=== PATIENT | female | born 1990 | race African-American/Black ===

== ENCOUNTER 2023-04-26 10:07 | Outpatient (AMB) | payer OTHER, SELFPAY ==
[2023-04-26 10:18] VITALS: BP 114/68; PULSE 72; O2SAT 99; BMI 25.5
--- NOTE | 2023-04-26 10:18 | MHC.PC.OV ---
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 occ dizziness PFSH Family History (Updated 04/26/23 @ 10:22 by Nicolle Yost [facility]) Mother Lupus Father No problems noted. Brother No problems noted. Brother No problems noted. Sister No problems noted. Daughter No problems noted. Son No problems noted. Son No problems noted. Social History (Updated 04/26/23 @ 10:35 by Torin Wyatt MD) Housing: Apartment Alcohol intake: current Patient Tobacco Use Status: Never used Tobacco Years Smoked: marijuana e-Cigarette/Vaping Use: Never Used Second Hand Smoke Exposure: No service: No Current occupational status: employed Cognitive needs: No Hearing needs: No Vision needs: Yes Questionnaire PHQ-9 Over the last 2 weeks, how often have you been bothered by any of the following problems? 1. Little interest or pleasure in doing things: not at all 2. Feeling down, depressed, or hopeless: not at all 3. Trouble falling or staying asleep, or sleeping too much: not at all 4. Feeling tired or having little energy: not at all 5. Poor appetite or overeating: not at all 6. Feeling bad about yourself - or that you are a failure or have let yourself or your family down: not at all 7. Trouble concentrating on things, such as reading the newspaper or watching television: not at all 8. Moving or speaking so slowly that other people could have noticed. Or the opposite - being so fidgety or restless that you have been moving around a lot more than usual: not at all 9. Thoughts that you would be better off or of hurting yourself in some way: not at all Total score: 0 Depression Screening Interpretation: Negative Depression Screening Done: Yes Source: Developed by Drs. Jadiel Pearson, Jennifer Moya, Mark Lizama and colleagues, with an educational linn from [employer]. Thrive Questionnaire Date Thrive assessed: 04/26/23 I am a: Patient What is your living situation today?: I have a steady place to live Within the past 12 months, did the food you bought not last and you didn't have the money to get more?: Never true Within the past 12 months, did you worry whether your food would run out before you got money to buy more?: Never true Do you have trouble paying for medicines?: No Do you have trouble getting transportation to medical appointments?: No Do you have trouble paying your heating and electricity bill?: No Do you have trouble taking care of your child, family member or friend?: No Do you have trouble with day-to-day activities such as bathing, preparing meals, shopping, managing finances, etc.?: No Are you currently unemployed and looking for a job?: No Are you interested in more education?: No Currently or been in a relationship where the following occur: no concerns reported AUDIT C Alcohol Use Questionnaire (AUDIT-C) 1. How often do you have a drink containing alcohol?: Monthly or less 2. How many drinks containing alcohol do you have on a typical day when you are drinking?: 1 or 2 3. How often do you have six or more drinks on one occasion?: Never Total Score: 1 SERGIO-7 AMB Questionnaire SERGIO-7 Date SERGIO - 7 assessed: 04/26/23 Feeling nervous, anxious, or on edge: 0 = Not at all Not being able to stop or control worryin = Not at all Worrying too much about different things: 0 = Not at all Trouble relaxin = Not at all Being so restless that it is hard to sit still: 0 = Not at all Becoming easily annoyed or irritable: 0 = Not at all Feeling afraid as if something awful might happen: 0 = Not at all Total SERGIO-7 score (0-4 normal; 5-9 mild; 10-14 moderate; 15-21 severe): 0 Source: Developed by Drs. Jadiel Pearson, Jennifer Moya, Mark Lizama and colleagues, with an educational linn from [employer]. Review of Systems Const Denies poor appetite and Denies weakness Eyes Denies no additional complaints ENT Reports Normal hearing present, Denies dizziness, Denies nasal congestion, Denies tinnitus and Denies sore throat Card Denies chest pain, Denies syncope, Denies rapid heart rate and Denies dyspnea Resp Denies cough and Denies dyspnea GI Denies change in stool character, Reports constipation, Denies diarrhea, Denies nausea and Denies vomiting Denies urinary frequency, Denies difficulty voiding and Denies dysuria Neuro Reports Normal hearing present, Denies confusion, Denies dizziness, Denies syncope and Denies weakness Psych Denies confusion Physical exam (Primary Care) Vital Signs: Oxygen Delivery Method Room Air 04/26/23 10:18 Depression Screening Interpretation: Negative Currently or been in a relationship where the following occur: no concerns reported Const General: No confusion Orientation/consciousness: No confusion HENMT Head: Yes normocephalic Ears: external ears normal and TM's normal bilaterally Face and sinus: Yes normal facial exam Mouth: moist mucous membranes Throat: Yes tonsils normal Eyes Conjunctivae: conjunctivae normal Pupils: Equal, round and reactive pupils present and Pupil accommodation reflex normal Direct Ophthalmoscopy: normal light reflex Neck Neck: No lymphadenopathy Thyroid: Thyroid normal Chest Chest palpation & inspection: normal inspection of the chest Resp Effort & Inspection: normal respiratory effort and no audible wheezes Auscultation: clear to auscultation bilaterally, no crackles, no wheezes and lung sounds not diminished Cardio Rate: regular rate Rhythm: regular rhythm Peripheral pulses: radial pulses present and dorsalis pedis present GI Palpation (GI): no masses Auscultation: normal bowel sounds and normoactive bowel sounds Rectal Exam - Female: deferred Skin General skin exam: no rashes or lesions noted Rashes: no rashes Neuro General: No confusion Cranial nerves: Yes Equal, round and reactive pupils present and Yes Normal hearing present Cognition (Neuro): normal cognition Gait exam (Neuro): Normal gait present Motor exam (neuro): 5/5 motor strength present throughout Deep tendon reflexes (DTR's): Right brachioradialis reflex intensity grade: 2+, Left brachioradialis reflex intensity grade: 2+, Right patellar reflex intensity grade: 2+ and Left patellar reflex intensity grade: 2+ Extrem General: No edema Office Procedures Flu Questionnaire Does the patient have a severe egg allergy?: No Does the patient have severe life threatening allergies?: No Does the patient have a fever or illness today?: No Has the patient ever had Guillain-Harrison Syndrome?: No Has the patient ever had any past reaction to a flu shot?: No Immunizations flu vacc [id number] 6mos up(PF) 60 mcg(15 mcgx4)/0.5 mL IM syringe Performing Provider: Torin Wyatt MD [facility] Documented (not given) by: Nicolle Yost CMA on 04/26/23 10:24 Reason Not Given: Patient Refused Assessment and Plan Assessment & Plan (1) Annual physical exam: Code(s): Z00.00 - Encounter for general adult medical examination without abnormal findings (2) Cervical cancer screening: Code(s): Z12.4 - Encounter for screening for malignant neoplasm of cervix Orders: Orders Thyroid Stimulating Hormone Today Z00.00 - Encounter for general adult medical examination without abnormal findings Vitamin B12 and Folate Today Z00.00 - Encounter for general adult medical examination without abnormal findings Lipid Panel Today E78.00 - Pure hypercholesterolemia, unspecified, Z00.00 - Encounter for general adult medical examination without abnormal findings Influenza [id number] Immunization Today Z23 - Encounter for immunization Complete Blood Count Auto Diff Today Z00.00 - Encounter for general adult medical examination without abnormal findings Comprehensive Met. Panel Today Z00.00 - Encounter for general adult medical examination without abnormal findings Free T4 (Free Thyroxine) Today Z00.00 - Encounter for general adult medical examination without abnormal findings Referrals CHIEF KNOWLEDGE OFFICER Referral Z12.4 - Encounter for screening for malignant neoplasm of cervix Coding Level of Care Code New Pt Prev Care 18-39yr([id number] Diagnoses Annual physical exam Z00.00 Cervical cancer screening Z12.4
== END 2023-04-26 11:16 | disposition home or self-care (01) ==
PROVIDERS: PCP Internal Medicine; Visit Provider Internal Medicine
DX: Z00.00 Encounter for general adult medical examination without abnormal findings (principal)
CPT/HCPCS: 99385

== ENCOUNTER 2023-09-09 14:12 | Outpatient (AMB) | payer OTHER, SELFPAY ==
[2023-09-09 14:18] VITALS: BP 130/82; BMI 24.7
--- NOTE | 2023-09-09 14:18 | A.OFFVIS_ITS ---
Intake Vital Signs 09/09/23 14:18 Height 5 ft 1 in Weight 131 lb BMI 24.7 BP 130/82 Intake Visit Reasons: New patient Annual Intake Note: control Cafeteria Director Required: No Information Interpreted: non-clinical & clinical Geospatial Scientist: Geospatial Scientist Present (Shannanyn) Allergies penicillin G Allergy (Severe, Verified 09/09/23 14:19) Hives Medication List - Last Reconciled 09/09/23 by Nory Milligan CNM cetirizine 10 mg PO DAILY fluticasone propionate 50 mcg/actuation sprays intranasal Is last menstrual period known: Yes Last menstrual period: 08/27/23 Post menopausal: No HPI New patient Annual HPI Details Patient is here for her 1st leadite man annual exam here she is live in [place] and that is where she had her kids she delivered all of them vaginally. She thinks it is about 6 or 7 years since she had a Pap smear. She has used pills before and the shot she would like a different method of control other than the condom she is using currently we reviewed all of the methods during this visit. She sometimes gets migraines but does not report them as having an aura. One time she had high blood pressure when she went to urgent Care last fall with an infection on her face which has left a scar to the left of her nose other than that she never had high blood pressure. [facility] Family History (Updated 04/26/23 @ 10:22 by Nicolle Yost [facility]) Mother Lupus Father No problems noted. Brother No problems noted. Brother No problems noted. Sister No problems noted. Daughter No problems noted. Son No problems noted. Son No problems noted. Social History (Updated 04/26/23 @ 10:35 by Torin Wyatt MD) Housing: Apartment Alcohol intake: current Patient Tobacco Use Status: Never used Tobacco Years Smoked: marijuana e-Cigarette/Vaping Use: Never Used Second Hand Smoke Exposure: No service: No Current occupational status: employed Cognitive needs: No Hearing needs: No Vision needs: Yes Female Reproductive History Menstrual Age of Menarche: 13 Duration of menses: 3-5 days Date of last menstrual period: 08/27/23 control method: none Total pregnancies: 5 Full term: 3 Number of Living Children: 3 Ab spontaneous: 2 Physical Exam Vital Signs: Last Vital Signs BP 130/82 09/09/23 14:18 BMI result Body Mass Index 24.7 Const General: healthy appearing, comfortable, no acute distress, well developed and alert Nutritional Appearance: average body habitus Orientation/consciousness: patient oriented x3 Limitations: no limitations HEENT Head: Yes normocephalic Neck Neck: Yes normal visual inspection Chest Chest palpation & inspection: normal inspection of the chest Breast/axilla inspection: normal inspection of the breasts and normal inspection of the axillae Breast/axilla palpation: normal palpation of the breasts and normal palpation of the axillae Resp Effort & Inspection: normal respiratory effort GI Inspection: Yes normal to inspection, No Abdominal wall edema and No distended Palpation (GI): Soft to palpation and nontender Other: External exam within normal limits vagina pink and moist multiparous cervix bled very easily at initial touch of speculum. Cervix was very firm mobile nontender. Uterus small firm midposition nontender adnexa nontender fair tone with Kegel but difficulty coordinating will give extra information for her to practice. General: Yes bladder normal to palpation External Female Exam: normal external appearance and normal appearance of the urethra Speculum Exam - Vagina: normal appearance of the vagina, normal palpation and normal vaginal discharge Speculum Exam - Cervix: normal appearance of the cervix, normal palpation and nontender Bimanual exam- vagina & uterus: normal bimanual exam, normal palpation, uterine size normal, bladder normal to palpation, consistency normal, normal palpation, uterine mobility normal, uterine shape normal, No Cervical tenderness present, non-tender and no cervical motion tenderness Bimanual Exam- Adnexa, other: normal adnexae, no masses, normal and No adnexal tenderness Neuro General: patient oriented x3 Assessment & Plan Assessment & Plan (1) Cervical cancer screening: Code(s): Z12.4 - Encounter for screening for malignant neoplasm of cervix (2) Friable cervix: Code(s): N88.8 - Other specified noninflammatory disorders of cervix uteri (3) Counseling for initiation of control method: Code(s): Z30.09 - Encounter for other general counseling and advice on contraception (4) Well woman exam with routine gynecological exam: Code(s): Z01.419 - Encounter for gynecological examination (general) (routine) without abnormal findings (5) Encounter for screening examination for sexually transmitted disease: Code(s): Z11.3 - Encounter for screening for infections with a predominantly sexual mode of transmission Plan -----Discussed in this visit the following: healthy balanced diet, regular and consistent exercise, getting recommended health screens, doing the best she can for her particular health concerns, kegel exercises, pap smear screening and followup recommendations, mammography screening and SBE, normal changes in cycles in her life stage--- .---I reviewed with the patient, all of the currently common used methods of control that are available. We reviewed how they work in the body, how t hey are taken, common side effects, uncommon side effects, precautions, and contraindications. -Discussed also factors that influence their effectiveness and use, and womens satisfaction with the method. -Discussed how each are used, and drawbacks of each method as well. -Methods covered included: condoms, control pills, control patches, control rings, Depo-Provera, Nexplanon, Mirena and Kyleena IUDs, and ParaGard IUDs. All of the above methods were covered in great detail including their side effect profiles and common experiences that women have and ways to mitigate ag ainst the negative experiences including attention to diet and exercise patient's with bleeding challenges that may occur her and efforts to time the initiation of the method to this start of the menstrual period. She decided to try the patch. We will see her in 3 months to make sure she does not develop any hypertension or have any worsening of any of her headaches. I will give her a prescription for year but we will definitely see her in 3 months for a patch check. I reviewed with her how to use it how to keep track of the timing and she thinks she will be good at that part because she has to change her contact lenses every 2 weeks and she has a reminder on her phone so she will just add this into her routine for weekly patch she is to start the patch on her next. I also reviewed signs and symptoms of ovulation which she realized in the discussion she has been having but did not know what it was( cervical mucous changes w ovulation) -----I Had the patient and demonstrate a Kegel contraction at the end of the exam, ordered in order to explain a Kegel exercise, and instructed the patient on doing the same exercises several times a day with increasing strength each time. One useful to is to imagine pursestring around the vagina and pulling it tight and upwards as if raising the vagina, or imagining that her tight muscles are on the 1st floor and she is trying to pull them up to the 5th floor and then slowly letting them go down. To try to do these several times a day but focus on the quality and the strength of the exercises more than the quantity, and tried isolate just those muscles and not involve other body parts STD. testing was done the exam but she declined blood work for HIV hep B hep C and syphilis with Medications: New norelgestromin-ethin.estradiol 150-35 mcg/24 hr (Xulane) apply once weekly for 3 weeks of a 4-week cycle 1 patch transdermal Q7D 9 ea 3RF Coding Level of Care Code New Pt Prev Care 18-39yr([id number] Diagnoses Cervical cancer screening Z12.4 Friable cervix N88.8 Counseling for initiation of control method Z30.09 Well woman exam with routine gynecological exam Z01.419 Encounter for screening examination for sexually transmitted disease Z11.3
== END 2023-09-09 15:50 | disposition home or self-care (01) ==
LOC: HO.HWSM 14:12
PROVIDERS: PCP Internal Medicine; Visit Provider Advanced Practice Midwife
DX: Z01.419 Encounter for gynecological examination (general) (routine) without abnormal findings (principal); N88.8 Other specified noninflammatory disorders of cervix uteri; Z30.09 Encounter for other general counseling and advice on contraception
CPT/HCPCS: 99385

== ENCOUNTER 2023-09-09 14:12 | Outpatient (REF) | payer OTHER, SELFPAY ==
[2023-09-10 09:53] LABS: CT PCR NOT DETECTED (Not Detect.); NG PCR NOT DETECTED (Not Detect.)
[2023-09-10 11:38] LABS: BV Int Neg Control Negative (Negative); BV Int Pos Control Positive (Positive)
[2023-09-17 03:59] LABS: HPV mRNA E6/E7 rflx Not Detected (Not Detected)
== END 2023-09-09 14:13 | disposition home or self-care (01) ==
LOC: HO.LNP 14:12
PROVIDERS: PCP Internal Medicine; Visit Provider Advanced Practice Midwife
DX: Z01.419 Encounter for gynecological examination (general) (routine) without abnormal findings (principal); Z11.51 Encounter for screening for human papillomavirus (HPV); N88.8 Other specified noninflammatory disorders of cervix uteri; Z20.2 Contact with and (suspected) exposure to infections with a predominantly sexual mode of transmission
CPT/HCPCS: 0353U; 87480; 87510; 87624; 87660; 88142

== ENCOUNTER 2024-05-30 14:55 | Outpatient (AMB) | payer OTHER, SELFPAY ==
[2024-05-30 14:57] VITALS: BP 148/90; PULSE 83; O2SAT 98; BMI 22.7
--- NOTE | 2024-05-30 14:57 | A.OFFPC_ITS ---
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 In review of the notes, patient was seen by [facility] gynecology August 2023 for annual exam with Pap smear. Patient is 9 weeks and has been following [facility]. She is being monitored for gestational hypertension and has a history of this. She uses baby scripts to monitor her blood pressure and OB is aware that her blood pressures have been higher and are deferring medication at this time. She is up-to-date on all vaccinations and sees an eye doctor yearly. [facility] Family History Mother Lupus Father No problems noted. Brother No problems noted. Brother No problems noted. Sister No problems noted. Daughter No problems noted. Son No problems noted. Son No problems noted. Social History Housing: Apartment Alcohol intake: current Patient Tobacco Use Status: Never used Tobacco Years Smoked: marijuana e-Cigarette/Vaping Use: Never Used Second Hand Smoke Exposure: No service: No Current occupational status: employed Cognitive needs: No Hearing needs: No Vision needs: Yes Female Reproductive History Menstrual Age of Menarche: 13 Questionnaire PHQ-9 Over the last 2 weeks, how often have you been bothered by any of the following problems? 1. Little interest or pleasure in doing things: not at all 2. Feeling down, depressed, or hopeless: not at all 3. Trouble falling or staying asleep, or sleeping too much: not at all 4. Feeling tired or having little energy: not at all 5. Poor appetite or overeating: not at all 6. Feeling bad about yourself - or that you are a failure or have let yourself or your family down: not at all 7. Trouble concentrating on things, such as reading the newspaper or watching television: not at all 8. Moving or speaking so slowly that other people could have noticed. Or the opposite - being so fidgety or restless that you have been moving around a lot more than usual: not at all 9. Thoughts that you would be better off or of hurting yourself in some way: not at all Total score: 0 Depression Screening Interpretation: Negative Depression Screening Done: Yes 56018 - PHQ-9 Billing: Yes Source: Developed by Drs. Jadiel Pearson, Jennifer Moya, Mark Lizama and colleagues, with an educational linn from [employer]. Thrive Questionnaire Date Thrive assessed: 05/30/24 I am a: Patient What is your living situation today?: I have a steady place to live Within the past 12 months, did the food you bought not last and you didn't have the money to get more?: Never true Within the past 12 months, did you worry whether your food would run out before you got money to buy more?: Never true Do you have trouble paying for medicines?: No Do you have trouble getting transportation to medical appointments?: No Do you have trouble paying your heating and electricity bill?: No Do you have trouble taking care of your child, family member or friend?: No Do you have trouble with day-to-day activities such as bathing, preparing meals, shopping, managing finances, etc.?: No Are you currently unemployed and looking for a job?: No Are you interested in more education?: I choose not to answer this question Please select the resources that you would like help with: None Currently or been in a relationship where the following occur: No concerns reported THRIVE Score: 0 AUDIT C Alcohol Use Questionnaire (AUDIT-C) 1. How often do you have a drink containing alcohol?: Never 3. How often do you have six or more drinks on one occasion?: Never Total Score: 0 SERGIO-7 AMB Questionnaire SERGIO-7 Date SERGIO - 7 assessed: 05/30/24 Feeling nervous, anxious, or on edge: 0 = Not at all Not being able to stop or control worryin = Not at all Worrying too much about different things: 0 = Not at all Trouble relaxin = Not at all Being so restless that it is hard to sit still: 0 = Not at all Becoming easily annoyed or irritable: 0 = Not at all Feeling afraid as if something awful might happen: 0 = Not at all Total SERGIO-7 score (0-4 normal; 5-9 mild; 10-14 moderate; 15-21 severe): 0 Source: Developed by Drs. Jadiel Pearson, Jennifer Moya, Mark Lizama and colleagues, with an educational linn from [employer]. SERGIO-7 Assessment Billing SERGIO-7 Assessment Tool: SERGIO-7 Assessment 74696 Review of Systems Const Denies body aches, Denies fatigue, Denies fever(s), Denies frequent falls, Denies headache(s) and Denies weakness Eyes Reports no additional complaints, Denies change in vision and Reports requires corrective lenses ENT Denies dysphagia, Denies dizziness, Denies facial pain, Denies headache(s), Denies nasal congestion and Denies odynophagia Card Denies chest pain, Denies syncope, Denies irregular heart rhythm, Denies leg edema, Denies lightheadedness and Denies dyspnea Resp Denies cough and Denies dyspnea GI Denies constipation, Denies dysphagia, Denies dyspepsia, Denies diarrhea, Reports nausea (AM), Denies odynophagia and Reports vomiting (AM) Denies urinary frequency, Denies dysuria, Denies urinary hesitancy and Denies urinary urgency Musc Denies back pain and Denies myalgias Skin/Breast Reports system reviewed and no additional complaints, except as documented Neuro Denies dizziness, Denies syncope, Denies frequent falls, Denies headache(s) and Denies weakness Psych Reports no additional complaints Endo Denies fatigue Physical exam (Primary Care) Vital Signs: Last Vital Signs Pulse 83 05/30/24 14:57 BP 148/90 H 05/30/24 14:57 Pulse Ox 98 05/30/24 14:57 Oxygen Delivery Method Room Air 05/30/24 14:57 BMI result Body Mass Index 22.7 Tobacco/Smoking Status: Tobacco use Status Tobacco use date assessed 05/30/24 05/30/24 15:04 Patient Tobacco Use Status Never used Tobacco 05/30/24 15:04 e-Cigarette/Vaping Use Never Used 05/30/24 15:04 PHQ-9: PHQ-9 Score PHQ-9: Total score 0 05/30/24 15:37 Depression Screening Interpretation: Negative Thrive Assessment: Date of Thrive Assessment Date Thrive assessed 05/30/24 05/30/24 15:04 Currently or been in a relationship where the following occur: No concerns reported Const General: cooperative, healthy appearing, comfortable and no acute distress Orientation/consciousness: patient oriented x3 HENMT Head: Yes normocephalic Ears: hearing grossly normal bilaterally, external ears normal, TM's normal bilaterally and EAC's normal General nose exam: Normal external nose present Face and sinus: Yes normal facial exam and Yes sinuses nontender Mouth: Normal oral and palatal mucosa present and tongue normal Throat: Yes posterior oropharynx normal Eyes General: appearance normal, both eyes and all related structures Conjunctivae: conjunctivae normal Pupils: Equal, round and reactive pupils present EOM: EOMs intact bilaterally and No Nystagmus present Neck Neck: Yes normal visual inspection, Yes full ROM and Yes no lymphadenopathy Chest Chest palpation & inspection: normal inspection of the chest Resp Effort & Inspection: normal respiratory effort Auscultation: clear to auscultation bilaterally, no crackles, no rales, no r honchi, no wheezes and breath sounds present Cardio Rate: regular rate Rhythm: regular rhythm Peripheral pulses: radial pulses present and dorsalis pedis present GI Inspection: Yes normal to inspection and No Abdominal wall edema Palpation (GI): Soft to palpation, not firm and nontender Auscultation: normal bowel sounds Rectal Exam - Female: deferred General: Yes no CVA tenderness Back/Spine/Pelvis Back: no CVA tenderness Skin General skin exam: no rashes or lesions noted Neuro General: patient oriented x3 Cranial nerves: Yes Equal, round and reactive pupils present, Yes Midline tongue present, Yes Ability to bilaterally elevate shoulders present and No Nystagmus present Gait exam (Neuro): Normal gait present Extrem General: Yes normal to inspection, Yes full ROM, No no pedal edema and No edema Psych Speech and movement: Normal speech and movement present Affect: normal affect Insight: Good insight present (Psych) Judgement: Good judgement present (Psych) Coding Level of Care Code New Pt Prev Care 18-39yr(91669 Diagnoses Annual physical exam Z00.00 Additional Codes SERGIO-7 Assessment Billing - SERGIO-7 Assessment Tool: SERGIO-7 Assessment 87096 ([id number]) PHQ-9 - 33992 - PHQ-9 Billing: Yes ([id number]) Assessment & Plan Assessment & Plan (1) Annual physical exam: Code(s): Z00.00 - Encounter for general adult medical examination without abnormal findin gs Category: Medical Plan: Patient is up-to-date on all recommended routine screenings and vaccinations for her age. She recently had blood work through [facility] and we will not request blood work at this time. We will follow up annually or sooner if new problems arise or if instructed by OB. Management of the blood pressure we will defer to her OB provider at this time.
== END 2024-05-30 15:52 | disposition home or self-care (01) ==
LOC: HO.HMCH 14:55
PROVIDERS: PCP Internal Medicine
DX: Z00.00 Encounter for general adult medical examination without abnormal findings (principal)

== ENCOUNTER → 2024-05-30 14:55 | Outpatient (BNVA) | payer OTHER, SELFPAY | PROVIDERS: PCP Internal Medicine | DX: Z00.00 Encounter for general adult medical examination without abnormal findings (principal) | CPT/HCPCS: 96127 ==

== ENCOUNTER 2025-03-27 10:04 | Emergency (ER) | payer OTHER, SELFPAY ==
[2025-03-27 10:06] VITALS: BP 154/82; PULSE 78; RESP 18; TEMP 36.6; O2SAT 98; BMI 25.5
--- NOTE | 2025-03-27 10:27 | ED.GENADULT ---
HPI - General Adult General Chief complaint: General Medical Stated complaint: itchy hair Time Seen by Provider: 03/27/25 10:25 Source: patient and old records reviewed Mode of arrival: ambulatory Limitations: no limitations History of Present Illness ED Provider: DENIZ JENKINS narrative: 34 yo female with no sig PMH here with itchy scalp for a few days. She notes her kids had lice and she has had to treat them twice. She herself has not been treated. She has no other rash or itching anywhere. MD complaint: itchy scalp Onset (ago): day(s) (few) Location: head Radiation: non-radiation Severity: mild Quality: other (pruritic) Relieving factors: none Exacerbating factors: none Associated symptoms: denies other symptoms Treatments prior to arrival: none Related Data Home Medications ?Medication ?Instructions ?Recorded ?Confirmed ondansetron 4 mg disintegrating mg PO 05/30/24 05/30/24 tablet pyridoxine (vitamin B6) 25 mg 25 mg PO TID PRN nausea/vomiting 05/30/24 05/30/24 tablet (Vitamin B-6) Previous Rx's ?Medication ?Instructions ?Recorded permethrin 1 % topical liquid (Nix 60 ml topical ONCE #118 mL 03/27/25 Creme Rinse) Allergies Allergy/AdvReac Type Severity Reaction Status Date / Time penicillin G Allergy Severe Hives Verified 03/27/25 10:07 Review of Systems Review of Systems: Constitutional : No Fever, No Chills Cardiovascular : No Chest Pain, No SOB, No Dyspnea on Exertion Respiratory : No Cough, No Sputum Gastrointestinal : No Nausea, No Vomiting Musculoskeletal : No joint pain, No Myalgias, No Joint Swelling Skin : No Skin Lesions, No rash Neuro : No Weakness, No Numbness, No Dizziness, no headache All other systems reviewed and are negative PMF Past Medical History Attestation statement: The following information was validated with the patient. Source: old records reviewed Medical History Cervical cancer screening Friable cervix Family History Family History Mother Lupus Father No problems noted. Brother No problems noted. Brother No problems noted. Sister No problems noted. Daughter No problems noted. Son No problems noted. Son No problems noted. Social History Social History Housing: Apartment Alcohol intake: current Patient Tobacco Use Status: Never used Tobacco Years Smoked: marijuana e-Cigarette/Vaping Use: Never Used Second Hand Smoke Exposure: No Advance Directives: No Advance Directives Information Provided: Yes Do you have a plan to hurt others: No Plan service: No Current occupational status: employed Cognitive needs: No Hearing needs: No Vision needs: Yes Physical Exam ED Vital Signs: Vital Signs - 24 hr 03/27/25 10:06 03/27/25 10:37 Temperature 97.9 F 97.9 F Pulse Rate 78 78 Respiratory Rate 18 18 Blood Pressure 154/82 H 154/82 H Pulse Oximetry 98 98 Oxygen Delivery Method Room Air Room Air BMI result Body Mass Index 25.5 Appearance: Alert. Oriented X3. No acute distress. Eyes: Pupils equal, round and reactive to light. ENT: Pharynx normal. on scalp dry skin and I can see small nits the scalp itself is not swollen red. Neck: Normal inspection. Neck supple. CVS: Pulses normal. Respiratory: No respiratory distress. Abdomen: atraumatic Skin: Skin warm and dry. Extremities: No lower extremity edema. Neuro: Oriented X 3. No motor deficit. No sensory deficit. Medical Decision Making Medical Decision Making MDM Narrative: 34 yo female with no sig PMH here with c/o itchy scalp with signs of lice and direct exposure to lice. At this time no signs of secondary infection will provide nix told her to use it according to package instructions. Differential Diagnosis Differential Diagnoses: The differential diagnosis associated with the presentation includes lice, scabies Independent Historian Clinical information obtained from an independent historian. History obtained from or confirmed by: Other External Record Review External record reviewed: Outpatient record Prescription Management I considered prescription management with: Other Discharge Plan Discharge Clinical Impression: Exposure to head lice, Itchy scalp Patient Disposition: Home, Self-Care Instructions: Itchy Skin (ED) Additional Instructions: you may need more than one treatment please follow package instructions. return for any worsening symptoms or concerns. Prescriptions: New Nix Creme Rinse 1 % liquid 60 ml topical ONCE Qty: 118 0RF Rx Instructions: please follow package instructions No Action ondansetron 4 mg tablet,disintegrating PO pyridoxine (vitamin B6) [Vitamin B-6] 25 mg tablet 25 mg PO TID PRN (Reason: nausea/vomiting) Interventions: ED Discharge Assessment Last Done: 03/27/25 10:37 Print Language: Irish
[2025-03-27 10:37] VITALS: BP 154/82; PULSE 78; RESP 18; TEMP 36.6; O2SAT 98
== END 2025-03-27 10:41 | disposition home or self-care (01) ==
PROVIDERS: Emergency Provider Emergency Medicine; PCP Internal Medicine
DX: B85.2 Pediculosis, unspecified (principal); L29.89 Other pruritus
CPT/HCPCS: 99282; 99283